=== PATIENT | female | born 1995 | race Caucasian/White ===

== ENCOUNTER 2016-08-13 12:10 | Emergency (ER) | payer MEDICAID ==
[~2016-08-13] VITALS: Ht 162.6 cm; Wt 65.0 kg
[~2016-08-13 12:10] MED LIST: BACTDS PO; CEPH-443 PO; HYDR-3011 PO; KENC1 TOP
[2016-08-13] MEDS ORDERED: SOD CHLORIDE 0.9% 500 ML IV STA (13:33)
[2016-08-13] MEDS ORDERED: ONDANSETRON 4 MG INJ IV STA (13:33)
[2016-08-13] MEDS ORDERED: KETOROLAC 30 MG INJ IV STA (13:33)
--- NOTE | 2016-08-13 13:33 | ERD ---
ER Documentation Chief Complaint Date/Time DATE: 08/13/16 TIME: 13:20 Chief Complaint HPI 20 y/o female presents to ED for right flank pain that radiates to right upper and right lower abdominal area. Pain started last night at around 7 PM when she woke up from her bed. Pain was described as sharp with a rate of 7/10 about 2 hours ago and 9/10 at this time. Vomited twice prior to arrival. Has difficulty walking. Denies headache, loss of consciousness, dizziness, blurry vision, changes in vision, photophobia, facial pain, ear pain, throat pain, difficulty swallowing, neck pain, shoulder pain, chest pain, cough, hemoptysis, loss of appetite, hematochezia, diarrhea, constipation, vaginal bleeding, vaginal discharge, urinary symptoms, hematuria, bladder and bowel incontinences, extremity tenderness, numbness or tingling sensation, trauma/falls, recent travel, recent exposure to illness, recent antibiotic use in the last 3 months, fever, chills. Allergy: NKA PMH: Denies. Family medical history: Denies. AO LMP: "A month ago." Medications: Denies. Surgery: Denies. 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 Denies smoking, use of alcohol, use of illegal drugs. ROS All systems reviewed and are negative except as per history of present illness. Medications Home Meds Active Scripts Acetaminophen* (Tylophen*) 500 Mg Capsule, 1 CAP PO Q6H Y for PAIN AND OR ELEVATED TEMP, #20 CAP Prov:PASILAWALTER PEREZAR F 08/13/16 Ondansetron Hcl* (Zofran*) 4 Mg Tablet, 4 MG PO Q8H Y for NAUSEA AND/OR VOMITING , #30 TAB Prov:PASILABANWALTERAR F 08/13/16 Cephalexin* (Keflex*) 500 Mg Capsule, 500 MG PO QID for 10 Days, CAP Prov:PASILABAN,KLAR F 08/13/16 Hydroxyzine Hcl* (Hydroxyzine Hcl*) 25 Mg Tablet, 25 MG PO Q8H Y for ITCHING, # 30 TAB Prov:LINK URIARTE NP 10/08/15 Triamcinolone Acetonide* (Kenalog*) 0.1%-15GM Cr, 1 APPLIC TOP BID, #1 TUB Prov:LINK URIARTE JEAN Anaya SAUSAGE STRINGER 10/08/15 Cephalexin* (Keflex*) 500 Mg Capsule, 500 MG PO QID for 10 Days, CAP Prov:LINK URIARTE PENA MadelinKaycee [employer]USAGE STRINGER 10/08/15 Sulfamethoxazole-Trimethoprim* (Bactrim* DS) 800-160 Mg Tab, 1 TAB PO BID for 10 Days, TAB Prov:LINK URIARTEKaycee SAUSAGE STRINGER 10/08/15 Allergies Allergies: Coded Allergies: No Known Drug Allergies (Verified Allergy, Mild, 08/04/14) PMhx/Soc History of Surgery: No Anesthesia Reaction: No Hx Neurological Disorder: No Hx Respiratory Disorders: No Hx Cardiac Disorders: No Hx Psychiatric Problems: No Hx Miscellaneous Medical Probl: No Hx Alcohol Use: No Hx Substance Use: No Hx Tobacco Use: No Physical Exam Vitals Vital Signs Date Time Temp Pulse Resp B/P Pulse Ox O2 Delivery O2 Flow Rate FiO2 08/13/16 15:21 98.4 78 18 113/66 98 Physical Exam CONSTITUTIONAL: Well-appearing; well-nourished; in no apparent distress. HEAD: Normocephalic; atraumatic. EYES: Conjunctiva clear, sclera non-icteric, EOM intact. PERRL Ears: Hearing intact. EACs clear, TMs non-bulging, non-inflamed, translucent & mobile, ossicles normal appearance, No obstructions, no erythema, no discharges Nose: No obstructions. No polyps. No external lesions. Mucosa non-inflamed. No external lesions, septum and turbinates normal. No rhinorrhea. No discharges. Frontal sinus is non-tender to palpation. Maxillary sinus is non-tender to palpation. MOUTH: Moist mucous membranes, no lesion, no obstructions, no vesicles, no thrush, patent airway Throat: Uvula in midline. Right tonsil is +1 with no erythema, no exudate. Left tonsil is +1 with no erythema, no exudate. Tolerating secretions well. Good gag reflex. Patent airway. Neck: Supple, without lesions, bruits, or adenopathy. No mass. Thyroid non- enlarged and non-tender to palpation. CHEST: Symmetrical chest. Respirations even and not labored. No retractions noted. CARDIOVASCULAR: Normal S1, S2. RRR. No murmurs, gallops. RESPIRATORY: Normal chest excursion with respiration; breath sounds clear and equal bilaterally; no wheezes, rhonchi, or rales. Breathing even and unlabored. Speaking in clear, full, and complete sentences w/ ease. ABDOMEN: Normal bowel sounds normal. Tenderness to right upper and right lower abdomen on light and deep palpation with mild guarding. Soft, round, non- distended, no rebound, no organomegaly, no masses, no pulsating abdominal mass. No hernia. No peritoneal signs. : Has right CVA tenderness. BACK: Symmetrical shoulder. Spine is midline without deformity, tenderness. No evidence of trauma or deformity. PELVIS: Stable pelvis. No evidence of trauma or deformity. MUSCULOSKELETAL: Normal gait and station. No misalignment, asymmetry, crepitation, defects, tenderness, masses, effusions, decreased range of motion, instability, atrophy or abnormal strength or tone in the head, neck, spine, ribs , pelvis or extremities. Negative straight leg test bilaterally. No calf tenderness. NEUROVASCULAR: Distal pulses are present. Pedal pulse are present, equal, and normal. Capillary refills are < 2 seconds. NEUROLOGIC: Alert and oriented x4. Speaks full and clear sentences. Cranial Nerves II-XII normal. Sensation to pain, touch, and proprioception normal. Grossly unremarkable. No neurologic deficits. Romberg test is negative. PSYCHOLOGICAL: The patients mood and manner are appropriate. No hallucinations , delusions. Not SI. Not HI. Has the capacity to decide for self SKIN: Normal for age and ethnicity; warm; dry; good turgor; no apparent lesions or exudates. No rashes, hives, discoloration. Intact. Result Diagram: 08/13/16 1400 08/13/16 1400 Results 24 hrs Laboratory Tests Test 08/13/16 14:00 08/13/16 15:00 Alanine Aminotransferase (ALT/SGPT) 29IU/L Albumin 4.5g/dl Albumin/Globulin Ratio 1.28 Alkaline Phosphatase 80IU/L Amylase Level 80U/L Anion Gap 20 Aspartate Amino Transf (AST/SGOT) 23IU/L Basophils # 0.010^3/ul Basophils % 0.3% Blood Urea Nitrogen 7mg/dl Calcium Level 9.4mg/dl Carbon Dioxide Level 23mmol/L Chloride Level 102mmol/L Creatinine 0.62mg/dl Direct Bilirubin 0.00mg/dl Eosinophils # 0.010^3/ul Eosinophils % 0.4% Globulin 3.50g/dl Glucose Level 88mg/dl Hematocrit 39.6% Hemoglobin 13.5g/dl Indirect Bilirubin 0.4mg/dl Lipase 49U/L Lymphocytes # 2.510^3/ul Lymphocytes % 23.4% Mean Corpuscular Hemoglobin 30.4pg Mean Corpuscular Hemoglobin Concent 34.1g/dl Mean Corpuscular Volume 89.2fl Mean Platelet Volume 12.0fl Monocytes # 1.010^3/ul Monocytes % 9.0% Neutrophils # 7.210^3/ul Neutrophils % 66.7% Nucleated Red Blood Cells # 0.010^3/ul Nucleated Red Blood Cells % 0.0/100WBC Platelet Count 07015^3/UL Potassium Level 3.7mmol/L Red Blood Count 4.4410^6/ul Red Cell Distribution Width 12.7% Serum HCG, Qualitative POSITIVE Sodium Level 141mmol/L Total Bilirubin 0.4mg/dl Total Protein 8.0g/dl Urine Bacteria MODERATE Urine Bilirubin NEGATIVE Urine Clarity CLOUDY Urine Color LT. YELLOW Urine Glucose NEGATIVE% Urine Hemoglobin 3+ Urine Ketones 3+ Urine Leukocyte Esterase 2+ Urine Microscopic RBC 10-25/HPF Urine Microscopic WBC >200/HPF Urine Nitrite NEGATIVE Urine Specific [place] 1.015 Urine Squamous Epithelial Cells MODERATE Urine Total Protein TRACE Urine Urobilinogen 0.2 E.U./dL Urine pH 7.0 White Blood Count 10.810^3/ul Beta HCG, Quantitative 367.0mIU/ml Current Medications Medications (Trade) Dose Ordered Sig/Tanmay Route PRN Reason Start Time Stop Time Status Last Admin Dose Admin Sodium Chloride (NS) 500 ml @ 500 mls/hr Q1H STAT IV 08/13/16 13:33 08/13/16 14:32 DC 08/13/16 14:33 Ondansetron HCl (Zofran Inj) 4 mg ONCE STAT IV 08/13/16 13:33 08/13/16 13:36 DC 08/13/16 14:32 Ketorolac Tromethamine (Toradol) 30 mg ONCE STAT IV 08/13/16 13:33 08/13/16 15:35 DC Ceftriaxone Sodium (Rocephin) 1 gm ONCE ONCE IM 08/13/16 16:30 08/13/16 16:31 DC 08/13/16 16:29 Procedures/MDM Examination: Please see physical examination. Disease process, medical treatment was explained to the patient. She verbalized understanding and agreed with the diagnostic tests, medical treatment, and follow-up care. Radiology: Pelvic ultrasound. Impression: No intrauterine gestation visualized. 2.2 cm hemorrhagic cyst in the right ovary. Small amount of free fluid in the pelvis. Differential diagnosis includes early , missed or ectopic . Follow-up ultrasound and hCG levels is recommended. Case and medical management was discussed with supervising physician, Dr. Crispin Reilly who agreed with my present treatment and follow-up care. Blood works: Reviewed. Beta hCG quantitative is 367.0 ml/ml Type and Rh: A negative. POC urine : Positive. Urinalysis: Urine specific gravity is 1.015; urine ketones is 3+; urine nitrate is negative; urine bilirubin is negative; urine urobilinogen is 0.2; urine leukocyte esterase 2+; urine microscopic RBCs 10-25; urine microscopic WBC is greater than 200 urine squamous epithelial cells is moderate; urine bacteria is moderate; urine hemoglobin is 3+; urine glucose is negative urine total protein is trace. Treatment: IV insertion. Zofran 4 mg IV. Normal saline 500 cc bolus. Rocephin 1 g IV. Tylenol by mouth. Re-evaluation: Denies back pain, flank pain, right upper and right lower abdominal pain, pelvic pain, vaginal bleeding. No nausea and vomiting. Consultation: None. Differential diagnosis: Pyelonephritis versus appendicitis versus cholecystitis versus ovarian cyst versus ovarian torsion versus sciatica versus ectopic Case and medical management were discussed with supervising physician, Dr. Crispin Reilly who agreed with my present treatment and aftercare. Medical decision makin20 y/o female presents to ED for right flank pain that radiates to right upper and right lower abdominal area. Pain started last night at around 7 PM when she woke up from her bed. Pain was described as sharp with a rate of 7/10 about 2 hours ago and 9/10 at this time. Vomited twice prior to arrival. Has difficulty walking. Patient's complaint, patient's history about the complaint, my physical findings, diagnostic test results are consistent with my final diagnosis of pyelonephritis. Incidental finding . Instructed to follow-up in the next 24-48 hours for re- evaluation and or repeat ultrasound and beta hCG quantitative. Medications prescribed are the following: Tylenol supportive treatment for pain and fever. Zofran for nausea and vomiting. Keflex 500 mg 4 times daily 10 days. Patient and family member are made aware of the side effects and adverse reactions of the medications prescribed. Instructed on when to seek emergent and medical attention in case allergic/anaphylactic reactions or severe side effects and or adverse reactions to medications. Patient and family member verbalized understanding. Patient instructed Instructed to follow-up with his PCP in 24-48 hours. Follow-up ultrasound and blood works with OB in the next 24-48 hours. Instructed to Call 911 for chest pain, shortness of breath. Advised to come back here in ED as soon as possible for severity of symptoms which includes but not limited to: any new symptoms; shortness of breath/difficulty of breathing; cardiovascular changes; severe gastrointestinal symptoms; signs and symptoms of bleeding and or infection; signs of compartment syndrome/neurovascular changes; neurological changes/deficits. Patient and family member verbalized understanding. Upon discharge, patient is alert and oriented x 4, speaks full and clear sentences, denies pain, has no neurological deficits, has no neurovascular deficits, difficulty of breathing. Breathing even and unlabored. Lung sounds are clear to auscultation. Not in distress. Appears comfortable. No active bleeding. Denies vaginal bleeding. Ambulatory with steady gait. Appears satisfied with care provided here in ED. Departure Diagnosis: Primary Impression: Pyelonephritis during Additional Impression: Weeks of gestation: less than 8 weeks Qualified Code: Z3A.01 - Less than 8 weeks gestation of Condition: Stable Additional Instructions: Instructed to follow-up with his PCP in 24-48 hours. Follow-up ultrasound and blood works with OB in the next 24-48 hours. Instructed to repeat ultrasound and blood works in 24-48 hours. Instructed to Call 911 for chest pain, shortness of breath. Advised to come back here in ED as soon as possible for severity of symptoms which includes but not limited to: any new symptoms; shortness of breath/difficulty of breathing; cardiovascular changes; severe gastrointestinal symptoms; signs and symptoms of bleeding and or infection; signs of compartment syndrome/neurovascular changes; neurological changes/deficits. Patient and family member verbalized understanding. ZENON BENJAMIN Aug 13, 2016 13:33
[2016-08-13 14:28] LABS: ADD SCAN DIFF NO
[2016-08-13 14:33] LABS: BASOPHILS % 0.3 % (0.0-2.0); EOSINOPHILS % 0.4 % (0.0-7.0); HEMATOCRIT 39.6 % (37.0-47.0); HEMOGLOBIN 13.5 g/dl (12.0-16.0); LYMPHOCYTES # 2.5 10^3/ul (0.8-2.9); LYMPHOCYTES % 23.4 % (18.0-55.0); MEAN CORPUSCULAR HEMOGLOBIN 30.4 pg (29.0-33.0); MEAN CORPUSCULAR HGB CONC 34.1 g/dl (32.0-37.0); MEAN CORPUSCULAR VOLUME 89.2 fl (72.0-104.0); NEUTROPHIL # 7.2 10^3/ul (1.6-7.5); NEUTROPHILS % 66.7 % (30.0-74.0); PLATELET COUNT 236 10^3/UL (140-415); RED BLOOD COUNT 4.44 10^6/ul (4.20-5.40); RED CELL DISTRIBUTION WIDTH 12.7 % (11.5-14.5); WHITE BLOOD COUNT 10.8 10^3/ul (4.8-10.8)
[2016-08-13 14:53] LABS: ALBUMIN 4.5 g/dl (3.3-4.9)
[2016-08-13 14:54] LABS: POTASSIUM 3.7 mmol/L (3.5-5.1)
[2016-08-13 14:56] LABS: ALBUMIN/GLOBULIN RATIO 1.28; BILIRUBIN,INDIRECT 0.4 mg/dl (0-1.1); BILIRUBIN,TOTAL 0.4 mg/dl (0.2-1.3); CREATININE 0.62 mg/dl (0.44-1.00)
[2016-08-13 14:57] LABS: CALCIUM 9.4 mg/dl (8.4-10.2)
[2016-08-13 15:18] LABS: ADD UMIC YES; URINE BILIRUBIN (Dip) NEGATIVE (NEGATIVE); URINE BLOOD (Dip) 3+ (NEGATIVE); URINE COLOR LT. YELLOW (YELLOW); URINE GLUCOSE (Dip) NEGATIVE (NEGATIVE); URINE KETONES (Dip) 3+ (NEGATIVE); URINE LEUKOCYTE ESTERASE (Dip) 2+ (NEGATIVE); URINE NITRITE (Dip) NEGATIVE (NEGATIVE); URINE TOTAL PROTEIN (Dip) TRACE (NEGATIVE); URINE UROBILINOGEN (Dip) 0.2 E.U./dL (0.1-1.0)
[2016-08-13 15:21] VITALS: Ht 162.6 cm; Wt 65.0 kg
--- NOTE | 2016-08-13 15:21 | RADRPT ---
PROCEDURE: US Pelvis. CLINICAL INDICATION: Flank pain TECHNIQUE: Multiple sonographic images of the pelvis were obtained utilizing a transabdominal and endovaginal technique. The images were reviewed on a PACS workstation. COMPARISON: None. FINDINGS: The uterus is normal in size and demonstrates a normal appearance of the myometrium. The endometria l stripe is homogeneous in appearance and has the thickness of 11 mm. No intrauterine gestation is noted. The ovaries are normal in size and echogenicity. Normal Doppler flow is identified in both ovaries. The right ovary measures 4.7 x 2.8 x 2.9 cm. There is a 2.2 cm hemorrhagic cyst in the right ovary. The left ovary measures 2.6 x 1.9 x 2.2 cm. There is a small amount of free fluid in the cul-de-sac. RPTAT: AA IMPRESSION: No intrauterine gestation visualized. 2.2 cm hemorrhagic cyst in the right ovary. Small amount of free fluid in the pelvis. Differential diagnosis includes early , missed or ectopic . Follow-up ultrasound and HCG levels is recommended. .Aleksey Busby MD, MD Date Time Electronically viewed and signed by .Aleksey Busby MD, on 08/13/2016 15:21 .S/
[2016-08-13 15:32] LABS: BACTERIA,URINE MODERATE; SQUAMOUS EPITHELIAL CELL,UR MODERATE
[2016-08-13] MEDS ORDERED: CEFTRIAXONE 1 GM INJ IM ONE (16:30)
[2016-08-13] MEDS ORDERED: CEPH-443 PO (16:48)
[2016-08-13] MEDS ORDERED: ONDA4TAB8 PO (16:49)
[2016-08-13] MEDS ORDERED: ACET500C5 PO (16:49)
[2016-08-13] MEDS ORDERED: ACETAMINOPHEN 500 MG TAB PO STA (16:50)
[2016-08-13 17:07] VITALS: BP 109/65; PULSE 73; RESP 18; TEMP 98.6
== END 2016-08-13 17:09 | disposition home or self-care (01) ==
LOC: FTE 12:10
DX: N12 Tubulo-interstitial nephritis, not specified as acute or chronic (principal); R11.10 Vomiting, unspecified; Z33.1 Pregnant state, incidental
CPT/HCPCS: 36415; 76801; 76817; 80053; 81001; 82150; 83690; 84702; 84703; 85025; 86900; 86901; 96372; 96374; J0696; J2405; J7040; Z7502; Z7610; 81003

== ENCOUNTER 2016-09-08 23:17 | Emergency (ER) | payer SELFPAY ==
[~2016-09-08] VITALS: Wt 61.4 kg
[~2016-09-08 23:17] MED LIST changes: +ACET500C5 PO; +ONDA4TAB8 PO
[2016-09-09 01:18] LABS: ADD SCAN DIFF NO
[2016-09-09 01:24] LABS: BASOPHILS % 0.4 % (0.0-2.0); EOSINOPHILS # 0.1 10^3/ul (0.0-0.5); EOSINOPHILS % 0.6 % (0.0-7.0); HEMATOCRIT 38.3 % (37.0-47.0); HEMOGLOBIN 13.1 g/dl (12.0-16.0); LYMPHOCYTES # 3.7 10^3/ul (0.8-2.9); LYMPHOCYTES % 34.5 % (18.0-55.0); MEAN CORPUSCULAR HEMOGLOBIN 30.8 pg (29.0-33.0); MEAN CORPUSCULAR HGB CONC 34.2 g/dl (32.0-37.0); MEAN CORPUSCULAR VOLUME 89.9 fl (72.0-104.0); MEAN PLATELET VOLUME 11.3 fl (7.4-10.4); MONOCYTE # 0.8 10^3/ul (0.3-0.9); MONOCYTES % 7.8 % (0.0-13.0); NEUTROPHILS % 56.4 % (30.0-74.0); PLATELET COUNT 235 10^3/UL (140-415); RED BLOOD COUNT 4.26 10^6/ul (4.20-5.40); RED CELL DISTRIBUTION WIDTH 12.5 % (11.5-14.5); WHITE BLOOD COUNT 10.6 10^3/ul (4.8-10.8)
[2016-09-09 01:34] LABS: ADD UMIC YES; URINE BLOOD (Dip) NEGATIVE (NEGATIVE); URINE COLOR YELLOW (YELLOW); URINE GLUCOSE (Dip) NEGATIVE (NEGATIVE); URINE KETONES (Dip) 15 (NEGATIVE); URINE LEUKOCYTE ESTERASE (Dip) NEGATIVE (NEGATIVE); URINE NITRITE (Dip) NEGATIVE (NEGATIVE); URINE TOTAL PROTEIN (Dip) TRACE (NEGATIVE); URINE UROBILINOGEN (Dip) 0.2 E.U./dL (0.1-1.0)
[2016-09-09 01:42] LABS: URINE BILIRUBIN (Dip) NEGATIVE (NEGATIVE)
--- NOTE | 2016-09-09 01:45 | ERD ---
ER Documentation Chief Complaint Date/Time DATE: 09/09/16 TIME: 01:35 Chief Complaint vag bleed, 7 wks preg HPI 20-year-old female presents here in emergency department for complaints of vaginal bleeding started tonight. Patient is 1 para 0 0. Patient complaining pelvic pain and cramping pain, 4/10 scale, vaginal bleeding.Patient is advised to take medications as prescribed. Patient is advised to rest, increase fluid intake and do good perineal hygiene. Patient is advised that if symptoms are worse, severe abdominal pain, uncontrolled vomiting , high fever, severe flank pain, worst signs and symptoms, to return to the emergency department immediately. Otherwise, patient can follow up with primary care doctor in 5-7 days. ROS All systems reviewed and are negative except as per history of present illness. Medications Home Meds Active Scripts Acetaminophen* (Tylophen*) 500 Mg Capsule, 1 CAP PO Q6H Y for PAIN AND OR ELEVATED TEMP, #20 CAP Prov:WALTER BENJAMINAR F 08/13/16 Ondansetron Hcl* (Zofran*) 4 Mg Tablet, 4 MG PO Q8H Y for NAUSEA AND/OR VOMITING , #30 TAB Prov:WALTER BENJAMINAR F 08/13/16 Cephalexin* (Keflex*) 500 Mg Capsule, 500 MG PO QID for 10 Days, CAP Prov:PASILABANWALTERAR F 08/13/16 Hydroxyzine Hcl* (Hydroxyzine Hcl*) 25 Mg Tablet, 25 MG PO Q8H Y for ITCHING, # 30 TAB Prov:LINK URIARTE NP 10/08/15 Triamcinolone Acetonide* (Kenalog*) 0.1%-15GM Cr, 1 APPLIC TOP BID, #1 TUB Prov:LINK URIARTE NP 10/08/15 Cephalexin* (Keflex*) 500 Mg Capsule, 500 MG PO QID for 10 Days, CAP Prov:LINK URIARTE NP 10/08/15 Sulfamethoxazole-Trimethoprim* (Bactrim* DS) 800-160 Mg Tab, 1 TAB PO BID for 10 Days, TAB Prov:LINK URIARTE NP 10/08/15 Allergies Allergies: Coded Allergies: No Known Drug Allergies (Verified Allergy, Mild, 08/04/14) PMhx/Soc Medical and Surgical Hx: pt denies Medical Hx, pt denies Surgical Hx History of Surgery: No Anesthesia Reaction: No Hx Neurological Disorder: No Hx Respiratory Disorders: No Hx Cardiac Disorders: No Hx Psychiatric Problems: No Hx Miscellaneous Medical Probl: No Hx Alcohol Use: No Hx Substance Use: No Hx Tobacco Use: No Smoking Status: Never smoker FmHx Family History: No coronary disease, No diabetes, No other Physical Exam Vitals Vital Signs Date Time Temp Pulse Resp B/P Pulse Ox O2 Delivery O2 Flow Rate FiO2 09/08/16 23:29 97.7 81 20 114/59 100 Physical Exam GENERAL: The patient is well developed and appropriate for usual state of health, in no apparent distress. CHEST: Clear to auscultation bilaterally. There are no rales, wheezes or rhonchi. HEART: Regular rate and rhythm. No murmurs, clicks, rubs or gallops. No S3 or S4. ABDOMEN: Soft, nontender and nondistended. Good bowel sounds. No rebound or guarding. No gross peritonitis. No gross organomegaly or masses. No Fisher sign or McBurney point tenderness. BACK: No midline or flank tenderness. EXTREMITIES: Equal pulses bilaterally. There is no peripheral clubbing, cyanosis or edema. No focal swelling or erythema. Full range of motion. Grossly neurovascularly intact. NEURO: Alert and oriented. Cranial nerves 2-12 intact. Motor strength in all 4 extremities with 5/5 strength. Sensation grossly intact. Normal speech and gait. SKIN: There is no apparent rash or petechia. The skin is warm and dry. HEMATOLOGIC AND LYMPHATIC: There is no evidence of excessive bruising or lymphedema. No gross cervical, axillary, or inguinal lymphadenopathy. VAGINAL: Small amount of blood in the vaginal vault, no cervical motion tenderness, no adnexal tenderness. Cervical os is closed. Result Diagram: 09/09/16 0110 Results 24 hrs Laboratory Tests Test 09/09/16 01:10 09/09/16 01:16 Basophils # 0.010^3/ul Basophils % 0.4% Beta HCG, Quantitative 922602.0mIU/ml Eosinophils # 0.110^3/ul Eosinophils % 0.6% Hematocrit 38.3% Hemoglobin 13.1g/dl Lymphocytes # 3.710^3/ul Lymphocytes % 34.5% Mean Corpuscular Hemoglobin 30.8pg Mean Corpuscular Hemoglobin Concent 34.2g/dl Mean Corpuscular Volume 89.9fl Mean Platelet Volume 11.3fl Monocytes # 0.810^3/ul Monocytes % 7.8% Neutrophils # 6.010^3/ul Neutrophils % 56.4% Nucleated Red Blood Cells # 0.010^3/ul Nucleated Red Blood Cells % 0.0/100WBC Platelet Count 31411^3/UL Red Blood Count 4.2610^6/ul Red Cell Distribution Width 12.5% White Blood Count 10.610^3/ul Urine Bacteria MODERATE Urine Bilirubin NEGATIVE Urine Clarity SLIGHTLY CLOUDY Urine Color YELLOW Urine Glucose NEGATIVE% Urine Hemoglobin NEGATIVE Urine Ketones 15 Urine Leukocyte Esterase NEGATIVE Urine Microscopic RBC 0-2/HPF Urine Microscopic WBC 0-2/HPF Urine Mucus FEW Urine Nitrite NEGATIVE Urine Specific [place] >=1.030 Urine Squamous Epithelial Cells MANY Urine Total Protein TRACE Urine Urobilinogen 0.2 E.U./dL Urine pH 6.0 PROCEDURE: US OB. CLINICAL INDICATION: , vaginal bleeding. TECHNIQUE: Multiple sonographic images of the pelvis were obtained. Transabdominal views of the pelvis are available for review. The images were reviewed on a PACS workstation. COMPARISON: None. FINDINGS: There is a single intrauterine . The mean gestational sac diameter measures 2.38 cm, corresponding to a 4-nrje-6-day . The crown-rump length equals 1.47 cm which corresponds to a 9-vftd-7-day gestational age by ultrasound criteria. cardiac activity measures 161 bpm. A small subchorionic hematoma is identified. The ovaries are not visualized. The adnexa are unremarkable. There is no free pelvic fluid. IMPRESSION: 1. Single viable intrauterine gestation of approximately 7 weeks 4 days. 2. The estimated date of delivery is 04/24/2017. 3. Small subchorionic hematoma. Continued follow-up is recommended. RPTAT: HTAR .Dennys Rush MD, Date Time Electronically viewed and signed by .Dennys Rush MD, on 09/09/2016 02:07 .R/ CC: LINK URIARTE NP Patient is A-, Rogham was given here in emergency department, 50 g. Tolerated Rhogam well. No reactions. Procedures/MDM Medical Decision Making: Patients vaginal bleeding is most likely consistent of possible threatened . Patient does not show any evidence of hypovolemic shock. Patients hemoglobin and hematocrit is stable. There is low suspicion for ectopic . GEETHA results show a viable 7 week with subchorionic hemorrhage BetaHCG Quantitative is appropriate for The patient is Rh-, was given RhoGAM at this time. There is no signs of symptoms of dehydration. There is low suspicion for sepsis. Patient appears well and is hemodynamically stable. Disposition: Home. Condition: Stable Instructions: Patient is advised to do bed rest, avoid heavy lifting, and avoid having sex until cleared by OB doctor. Patient is advised to follow up with OB doctor or here at the ER in 48 hours for reevaluation of symptoms, repeat beta HCG quantitative and ultrasound. Patient is advised that is symptoms are worst, severe bleeding, dizziness, severe abdominal pain, fever, worst signs and symptoms to return to the emergency department immediately. Departure Diagnosis: Primary Impression: Threatened Additional Impressions: Subchorionic hemorrhage Fetus number: single or unspecified fetus Trimester: first trimester Qualified Code: O41.8X10 - Subchorionic hemorrhage, first trimester, not applicable or unspecified fetus Intrauterine Condition: Stable Patient Instructions: Possible Miscarriage (Threatened ), Rho(D) Immune Globulin (Human) Solution for injection Additional Instructions: Patient is advised to do bed rest, avoid heavy lifting, and avoid having sex until cleared by OB doctor. Patient is advised to follow up with OB doctor or here at the ER in 48 hours for reevaluation of symptoms, repeat beta HCG quantitative and ultrasound. Patient is advised that is symptoms are worst, severe bleeding, dizziness, severe abdominal pain, fever, worst signs and symptoms to return to the emergency department immediately. LINK URIARTE NP Sep 09, 2016 01:45
[2016-09-09 01:53] LABS: URINE RBCS 0-2 /HPF (0)
[2016-09-09 01:54] LABS: BACTERIA,URINE MODERATE; MUCUS,URINE FEW; SQUAMOUS EPITHELIAL CELL,UR MANY
--- NOTE | 2016-09-09 02:07 | RADRPT ---
PROCEDURE: US OB. CLINICAL INDICATION: , vaginal bleeding. TECHNIQUE: Multiple sonographic images of the pelvis were obtained. Transabdominal views of the p elizabeth are available for review. The images were reviewed on a PACS workstation. COMPARISON: None. FINDINGS: There is a single intrauterine . The mean gestational sac diameter measures 2.38 cm, corres ponding to a 6-otwq-0-day . The crown-rump length equals 1.47 cm which corresponds to a 7- week-6-day gestational age by ultrasound criteria. cardiac activity measures 161 bpm. A smal l subchorionic hematoma is identified. The ovaries are not visualized. The adnexa are unremarkable. There is no free pelvic fluid. IMPRESSION: 1. Single viable intrauterine gestation of approximately 7 weeks 4 days. 2. The estimated date of delivery is 04/24/2017. 3. Small subchorionic hematoma. Continued follow-up is recommended. RPTAT: HTAR .Dennys Rush MD, MD Date Time Electronically viewed and signed by .Dennys Rush MD, on 09/09/2016 02:07 .R/
[2016-09-09 03:11] VITALS: BP 121/84; PULSE 76; RESP 18; TEMP 97.8
== END 2016-09-09 03:19 | disposition home or self-care (01) ==
LOC: FTE 23:17
DX: O20.0 Threatened abortion (principal); O41.8X10 Other specified disorders of amniotic fluid and membranes, first trimester, not applicable or unspecified; Z3A.01 Less than 8 weeks gestation of pregnancy
CPT/HCPCS: 76801; 81001; 84702; 85025; 86900; 86901; 99284; J2790; 81003

== ENCOUNTER 2016-09-11 08:53 | Emergency (ER) | payer MEDICAID ==
[~2016-09-11] VITALS: Wt 61.0 kg
--- NOTE | 2016-09-11 09:31 | ERD ---
ER Documentation Chief Complaint Date/Time DATE: 09/11/16 TIME: 09:31 Chief Complaint PELVIC PAIN 8 WEEKS PREG DENIES VB HPI This is a 20-year-old female who presents to the emergency department today for a recheck of vaginal bleeding that she had 2 days ago. Patient states that she does have some nausea but no vomiting. Denies any vaginal bleeding currently. States she does have some crampy abdominal pain she has not taken any medication for the pain or vomiting. States she has an appointment with her OB/ [facility] on Wednesday denies any fevers or chills. ROS All systems reviewed and are negative except as per history of present illness. Medications Home Meds Active Scripts Ondansetron Hcl* (Zofran*) 4 Mg Tablet, 4 MG PO Q6H for NAUSEA AND/OR VOMITING, #30 TAB Prov:SABA HALLMAN PA-C 09/11/16 Acetaminophen* (Tylophen*) 500 Mg Capsule, 1 CAP PO Q6H Y for PAIN AND OR ELEVATED TEMP, #30 CAP Prov:SABA HALLMAN PA-C 09/11/16 Acetaminophen* (Tylophen*) 500 Mg Capsule, 1 CAP PO Q6H Y for PAIN AND OR ELEVATED TEMP, #20 CAP Prov:ZENON BENJAMIN F 08/13/16 Ondansetron Hcl* (Zofran*) 4 Mg Tablet, 4 MG PO Q8H Y for NAUSEA AND/OR VOMITING , #30 TAB Prov:WALTER BENJAMINAR F 08/13/16 Cephalexin* (Keflex*) 500 Mg Capsule, 500 MG PO QID for 10 Days, CAP Prov:PASILAWALTER PEREZAR F 08/13/16 Hydroxyzine Hcl* (Hydroxyzine Hcl*) 25 Mg Tablet, 25 MG PO Q8H Y for ITCHING, # 30 TAB Prov:LINK URIARTE NP 10/08/15 Triamcinolone Acetonide* (Kenalog*) 0.1%-15GM Cr, 1 APPLIC TOP BID, #1 TUB Prov:LINK URIARTE NP 10/08/15 Cephalexin* (Keflex*) 500 Mg Capsule, 500 MG PO QID for 10 Days, CAP Prov:ILNK URIARTE NP 10/08/15 Sulfamethoxazole-Trimethoprim* (Bactrim* DS) 800-160 Mg Tab, 1 TAB PO BID for 10 Days, TAB Prov:LINK URIARTE PENA Héctor SANCHEZ 10/08/15 Allergies Allergies: Coded Allergies: No Known Drug Allergies (Verified Allergy, Mild, 09/11/16) PMhx/Soc Medical and Surgical Hx: pt denies Medical Hx, pt denies Surgical Hx History of Surgery: No Anesthesia Reaction: No Hx Neurological Disorder: No Hx Respiratory Disorders: No Hx Cardiac Disorders: No Hx Psychiatric Problems: No Hx Miscellaneous Medical Probl: No Hx Alcohol Use: No Hx Substance Use: No Hx Tobacco Use: No Smoking Status: Never smoker Physical Exam Vitals Vital Signs Date Time Temp Pulse Resp B/P Pulse Ox O2 Delivery O2 Flow Rate FiO2 09/11/16 08:58 98.1 114 18 118/68 99 Physical Exam Const: No acute distress Head: Atraumatic Eyes: Normal Conjunctiva ENT: Normal External Ears, Nose and Mouth. Neck: Full range of motion..~ No meningismus. Resp: Clear to auscultation bilaterally Cardio: Regular rate and rhythm, no murmurs Abd: Soft, mild suprapubic tenderness, non distended. Normal bowel sounds. No right lower quadrant pain. No tenderness at McBurney's. No left lower quadrant pain. Skin: No petechiae or rashes Neur: Awake and alert Psych: Normal Mood and Affect Result Diagram: 09/11/16 0930 Results 24 hrs Laboratory Tests Test 09/11/16 09:30 White Blood Count 7.310^3/ul Red Blood Count 4.0710^6/ul Hemoglobin 12.5g/dl Hematocrit 36.7% Mean Corpuscular Volume 90.2fl Mean Corpuscular Hemoglobin 30.7pg Mean Corpuscular Hemoglobin Concent 34.1g/dl Red Cell Distribution Width 12.3% Platelet Count 28367^3/UL Mean Platelet Volume 10.9fl Neutrophils % 51.0% Lymphocytes % 38.6% Monocytes % 8.7% Eosinophils % 1.0% Basophils % 0.4% Nucleated Red Blood Cells % 0.0/100WBC Neutrophils # 3.710^3/ul Lymphocytes # 2.810^3/ul Monocytes # 0.610^3/ul Eosinophils # 0.110^3/ul Basophils # 0.010^3/ul Nucleated Red Blood Cells # 0.010^3/ul Beta HCG, Quantitative 602909.0mIU/ml DIAGNOSTIC IMAGING REPORT Patient: CASSIDY ANDRE : 1995 Age: 20 Sex: F MR #: [id number] DOS: 09/11/16 0925 Ordering MD: SABA HALLMAN PA-C Location: [facility] Room/Bed: PROCEDURE: US OB. CLINICAL INDICATION: , vaginal bleeding TECHNIQUE: Transabdominal imaging of the pelvis was performed. Images are reviewed on a high-resolution PACS workstation. COMPARISON: Ultrasound, 09/09/2016 FINDINGS: Single intrauterine gestation is identified. heart rate is 179 bpm. [place]-rump length = 1.82 cm. Gestational age is 8 weeks 1 day and BETSY is 04/22/2017 by ultrasound criteria. Gestational age is 7 weeks 6 days and BETSY is 04/24/2017 by LMP. Small subchorionic hemorrhage is noted. Right ovary is unremarkable. Left ovary is not visualized. No adnexal mass or pelvic free fluid is identified. IMPRESSION: 1. Single live intrauterine with an estimated gestational age of 8 weeks 1 day by ultrasound criteria, as above. Small subchorionic hemorrhage is noted. RPTAT: HH .Vasquez Yee MD MD Date Time Electronically viewed and signed by .Vasquez Yee MD, on 09/11/2016 10: 01 .R/ CC: SABA HALLMAN PA-C Procedures/MDM This is a 20-year-old female who presents to the emergency department today for a recheck of vaginal bleeding that she had 2 days ago. Patient had some mild suprapubic pain however she had a full OB workup on her last visit. Patient was a negative and was given RhoGam. I did repeat a CBC, beta quant and ultrasound. Patient's last ultrasound showed a single viable intrauterine of approximately 7 weeks with a subchorionic hemorrhage. Laboratory work shows no elevated white blood cell count. Her hemoglobin is within normal limits. Beta quant hCG 998324.0 US shows a single live intrauterine with an estimated gestational age of 8 weeks and 1 day by ultrasound criteria as above. There is a small subchorionic hemorrhage is noted. There are no adnexal mass or pelvic free fluid. heart rate is 179 bpm Patient's beta quant 2 days ago was 054976.0 and is increasing appropriately. Her ultrasound is unchanged. Patient's symptoms of vaginal bleeding in 2 days ago may be related to these small subchorionic hemorrhage or possible early threatened . I explained this to the patient.Patient declined any nausea medication or Tylenol for pain. She will be given a prescription for Tylenol and Zofran. She was instructed to follow back up with her SPECTROSCOPIST on Wednesday as previously scheduled At this time the patient is stable for discharge and outpatient management. Patient should follow up with their PCP in the next 1-2 days. They may return to the emergency department sooner for any persistent or worsening of symptoms. Patient understood and agreed with the plan. Departure Diagnosis: Primary Impression: Pelvic pain during Condition: SABA Urias PA-C Sep 11, 2016 09:31
[2016-09-11 09:50] LABS: ADD SCAN DIFF NO
[2016-09-11 09:53] LABS: BASOPHILS % 0.4 % (0.0-2.0); EOSINOPHILS # 0.1 10^3/ul (0.0-0.5); HEMATOCRIT 36.7 % (37.0-47.0); HEMOGLOBIN 12.5 g/dl (12.0-16.0); LYMPHOCYTES # 2.8 10^3/ul (0.8-2.9); LYMPHOCYTES % 38.6 % (18.0-55.0); MEAN CORPUSCULAR HEMOGLOBIN 30.7 pg (29.0-33.0); MEAN CORPUSCULAR HGB CONC 34.1 g/dl (32.0-37.0); MEAN CORPUSCULAR VOLUME 90.2 fl (72.0-104.0); MEAN PLATELET VOLUME 10.9 fl (7.4-10.4); MONOCYTE # 0.6 10^3/ul (0.3-0.9); MONOCYTES % 8.7 % (0.0-13.0); NEUTROPHIL # 3.7 10^3/ul (1.6-7.5); PLATELET COUNT 222 10^3/UL (140-415); RED BLOOD COUNT 4.07 10^6/ul (4.20-5.40); RED CELL DISTRIBUTION WIDTH 12.3 % (11.5-14.5); WHITE BLOOD COUNT 7.3 10^3/ul (4.8-10.8)
--- NOTE | 2016-09-11 10:01 | RADRPT ---
PROCEDURE: US OB. CLINICAL INDICATION: , vaginal bleeding TECHNIQUE: Transabdominal imaging of the pelvis was performed. Images are reviewed on a high-reso [employer] PACS workstation. COMPARISON: Ultrasound, 09/09/2016 FINDINGS: Single intrauterine gestation is identified. heart rate is 179 bpm. [place]-rump length = 1.82 cm. Gestational age is 8 weeks 1 day and BETSY is 04/22/2017 by ultrasound criteria. Gestational age is 7 weeks 6 days and BETSY is 04/24/2017 by LMP. Small subchorionic hemorrhage is noted. Right ovary is unremarkable. Left ovary is not visualized. No adnexal mass or pelvic free fluid is identified. IMPRESSION: 1. Single live intrauterine with an estimated gestational age of 8 weeks 1 day by ultraso und criteria, as above. Small subchorionic hemorrhage is noted. RPTAT: HH .Vasquez Yee MD, MD Date Time Electronically viewed and signed by .Vasquez Yee MD, MD on 09/11/2016 10:01 .R/
[2016-09-11] MEDS ORDERED: ONDA4TAB8 PO (11:08)
[2016-09-11] MEDS ORDERED: ACET500C5 PO (11:08)
[2016-09-11 11:21] VITALS: BP 111/59; PULSE 70; RESP 18; TEMP 98.1
== END 2016-09-11 11:22 | disposition home or self-care (01) ==
LOC: FTE 08:53
DX: O26.891 Other specified pregnancy related conditions, first trimester (principal); R10.2 Pelvic and perineal pain; Z3A.08 8 weeks gestation of pregnancy
CPT/HCPCS: 36415; 76801; 76817; 84702; 85025; Z7502

== ENCOUNTER 2016-11-17 13:41 | Emergency (ER) | payer MEDICAID, OTHER ==
[~2016-11-17] VITALS: Ht 154.9 cm; Wt 64.0 kg
[2016-11-17 13:44] VITALS: Ht 154.9 cm; Wt 64.0 kg
[2016-11-17 14:19] LABS: ADD SCAN DIFF NO
[2016-11-17 14:20] LABS: BASOPHILS % 0.4 % (0.0-2.0); EOSINOPHILS # 0.1 10^3/ul (0.0-0.5); EOSINOPHILS % 0.9 % (0.0-7.0); HEMATOCRIT 35.7 % (37.0-47.0); HEMOGLOBIN 12.1 g/dl (12.0-16.0); LYMPHOCYTES % 25.7 % (18.0-55.0); MEAN CORPUSCULAR HEMOGLOBIN 30.8 pg (29.0-33.0); MEAN CORPUSCULAR HGB CONC 33.9 g/dl (32.0-37.0); MEAN CORPUSCULAR VOLUME 90.8 fl (72.0-104.0); MEAN PLATELET VOLUME 10.8 fl (7.4-10.4); MONOCYTE # 0.9 10^3/ul (0.3-0.9); MONOCYTES % 11.1 % (0.0-13.0); NEUTROPHIL # 4.7 10^3/ul (1.6-7.5); NEUTROPHILS % 61.6 % (30.0-74.0); PLATELET COUNT 233 10^3/UL (140-415); RED BLOOD COUNT 3.93 10^6/ul (4.20-5.40); RED CELL DISTRIBUTION WIDTH 13.3 % (11.5-14.5); WHITE BLOOD COUNT 7.7 10^3/ul (4.8-10.8)
[2016-11-17 14:36] LABS: INR 0.89; PARTIAL THROMBOPLASTIN TIME 27.5 Sec (25.0-35.0); PT RATIO 0.9
[2016-11-17 14:41] LABS: ALBUMIN 3.8 g/dl (3.3-4.9); CHLORIDE 113 mmol/L (97-110); POTASSIUM 4.2 mmol/L (3.5-5.1); SODIUM 141 mmol/L (135-144)
[2016-11-17 14:43] LABS: CREATININE 0.52 mg/dl (0.44-1.00)
[2016-11-17 14:44] LABS: ALANINE AMINOTRANSFERASE 31 IU/L (13-69); ALBUMIN/GLOBULIN RATIO 1.11; ALKALINE PHOSPHATASE 58 IU/L (42-121); ANION GAP 6 (8-16); ASPARTATE AMINO TRANSFERASE 21 IU/L (15-46); BILIRUBIN,INDIRECT 0.1 mg/dl (0-1.1); BILIRUBIN,TOTAL 0.1 mg/dl (0.2-1.3); BLOOD UREA NITROGEN 5 mg/dl (7-20); CARBON DIOXIDE 26 mmol/L (21-31); GLUCOSE 80 mg/dl (70-220); TOTAL PROTEIN 7.2 g/dl (6.1-8.1)
[2016-11-17 14:45] LABS: CALCIUM 9.2 mg/dl (8.4-10.2)
[2016-11-17 14:46] LABS: ETHANOL < 10.0 mg/dl
[2016-11-17 15:05] LABS: ACETAMINOPHEN < 10.0 ug/ml (10.0-30.0)
[2016-11-17 15:06] LABS: SALICYLATE < 1.0 mg/dl (5.0-30.0)
--- NOTE | 2016-11-17 15:16 | RADRPT ---
PROCEDURE: Obstetrical ultrasound CLINICAL INDICATION: 17 weeks confirm viability TECHNIQUE: Multiple sonographic images of the pelvis were obtained. The images were reviewed on a PACS workstation. COMPARISON: Obstetrical ultrasound from 09/11/2016 FINDINGS: The cervix is not well visualized. There is a single viable intrauterine gestation. Cardiac activity is present with 136 beats per minute. There is a vertex presentation. The placenta is posterior. There is no evidence for an abruption or placenta previa. There is a normal amount of amniotic fluid with in maximum vertical pocket of 4.8 cm. Measurements were made in order to determine age. The results are as follows (cm): BPD =4.41 HC =15.99 AC =13.35 FL =2.64 Estimated gestational age by ultrasound of approximately 18 weeks, 5 days. The estimated date of delivery by ultrasound is 04/15/2017. Estimated gestational age by LMP of approximately 17 weeks, 5 days. The estimated date of delivery by LMP is 04/22/2017. EFW = 244 grams (89th percentile) IMPRESSION: Single viable intrauterine gestation of approximately 18 weeks, 5 days . The estimated date of delivery is 04/15/2017 . Dating by ultrasound is within 1 week of dating by LMP. Normal heart rate of 136 beats per minute. Posterior placenta without evidence of an abruption or placenta previa. Estimated weight is in the 89th percentile. RPTAT: EE Physician Edinson Date Time Electronically viewed and signed by Physician Edinson on 11/17/2016 15:16 /
[2016-11-17 15:27] LABS: URINE BILIRUBIN (Dip) NEGATIVE (NEGATIVE); URINE BLOOD (Dip) NEGATIVE (NEGATIVE); URINE GLUCOSE (Dip) NEGATIVE (NEGATIVE); URINE KETONES (Dip) TRACE (NEGATIVE); URINE LEUKOCYTE ESTERASE (Dip) NEGATIVE (NEGATIVE); URINE NITRITE (Dip) NEGATIVE (NEGATIVE); URINE TOTAL PROTEIN (Dip) NEGATIVE (NEGATIVE); URINE UROBILINOGEN (Dip) 1.0 E.U./dL (0.1-1.0)
[2016-11-17 15:36] LABS: ADD UMIC NO; URINE COLOR YELLOW (YELLOW)
--- NOTE | 2016-11-17 15:44 | PSY ---
Date/Time of Note Date/Time of Note DATE: 11/17/16 TIME: 15:39 Psychiatric Subjective Eval Consent Pt consented to telemedicine: Yes Subjective Evaluation Patient location: emergency Chief Complaint: 17 weeks c/o depression with suicidal ideation History of present illness 21 yo single unemployed female s/p OD on Tylenol , 10 tablets. Pt states, she does nto want to be alive anymore, but she does not want to hurt the baby. She broke up with her BF 3 days ago and moved in with her mother who is not supportive. Pt is 17 weeks . She is tearful depressed, hopeless, helpless, overwhlemed. SHe has been feeling that way for a few weeks, but more so since the breakup. No psychosis. no HI. Past psychiatric history none Family History denies Medical history Problems Medical Problems: (1) Contact dermatitis Status: Acute (2) Depression Status: Chronic (3) Foot contusion Status: Acute (4) Intentional drug overdose Status: Acute (5) Intrauterine Status: Acute (6) Pelvic pain during Status: Acute (7) Status: Acute (8) Pyelonephritis during Status: Acute (9) Soft tissue abscess Status: Acute (10) Subchorionic hemorrhage Status: Acute (11) Threatened Status: Acute Allergies: Coded Allergies: No Known Drug Allergies (Verified Allergy, Mild, 09/11/16) Substance Abuse Substance use: No known substance abuse Social History Marital status: single Level of education: 13 years DPA/Conservatorship: No Occupation/Jail: unemployed Psychiatric Objective Eval Physical Examination: Sleep: Insomnia Appetite: Decreased Energy: Decreased Interest: Decreased Mental Status Examination: Appearance: Groomed Eye Contact: Good Psychomotor Activity: Normal Behavior: Cooperative Speech: Clear AFFECT: Depressed Mood: Depressed Though Process: Linear Thought Content: Normal Suicidal: Yes Homicidal: No On 72 hour hold: No Orientation: x4 Cognition: Alert Insight: Impared Judgement: Impared Laboratory Results Laboratory Tests Test 11/17/16 14:15 11/17/16 14:46 White Blood Count 7.710^3/ul Red Blood Count 3.9310^6/ul Hemoglobin 12.1g/dl Hematocrit 35.7% Mean Corpuscular Volume 90.8fl Mean Corpuscular Hemoglobin 30.8pg Mean Corpuscular Hemoglobin Concent 33.9g/dl Red Cell Distribution Width 13.3% Platelet Count 13341^3/UL Mean Platelet Volume 10.8fl Neutrophils % 61.6% Lymphocytes % 25.7% Monocytes % 11.1% Eosinophils % 0.9% Basophils % 0.4% Nucleated Red Blood Cells % 0.0/100WBC Neutrophils # 4.710^3/ul Lymphocytes # 2.010^3/ul Monocytes # 0.910^3/ul Eosinophils # 0.110^3/ul Basophils # 0.010^3/ul Nucleated Red Blood Cells # 0.010^3/ul Prothrombin Time 12.0Sec Prothrombin Time Ratio 0.9 INR International Normalized Ratio 0.89 Activated Partial Thromboplast Time 27.5Sec Sodium Level 141mmol/L Potassium Level 4.2mmol/L Chloride Level 113mmol/L Carbon Dioxide Level 26mmol/L Anion Gap 6 Blood Urea Nitrogen 5mg/dl Creatinine 0.52mg/dl Glucose Level 80mg/dl Calcium Level 9.2mg/dl Total Bilirubin 0.1mg/dl Direct Bilirubin 0.00mg/dl Indirect Bilirubin 0.1mg/dl Aspartate Amino Transf (AST/SGOT) 21IU/L Alanine Aminotransferase (ALT/SGPT) 31IU/L Alkaline Phosphatase 58IU/L Total Protein 7.2g/dl Albumin 3.8g/dl Globulin 3.40g/dl Albumin/Globulin Ratio 1.11 Salicylates Level < 1.0mg/dl Acetaminophen Level < 10.0ug/ml Ethyl Alcohol Level < 10.0mg/dl Urine Color YELLOW Urine Clarity SLIGHTLY CLOUDY Urine pH 6.0 Urine Specific [place] 1.025 Urine Ketones TRACE Urine Nitrite NEGATIVE Urine Bilirubin NEGATIVE Urine Urobilinogen 1.0 E.U./dL Urine Leukocyte Esterase NEGATIVE Urine Hemoglobin NEGATIVE Urine Glucose NEGATIVE% Urine Total Protein NEGATIVE Assessment and Plan Assessment/Diagnosis [place] I: MAJOR DEPRESSIVE DISORDER SINGLE EPISODE SEVERE W/O PSYCHOSIS [place] II: DEFERED [place] III: PRIMA , 17 WEEKS [place] IV: SEVERE [place] V: GAF 25 Recommendation/Plan Medication Management DEFER TO INPT Psychotherapy DEFER TO INPT Follow-up/Disposition 5105 FOR DTS; TRANSFER TO INPT PSYCH 5150 Recommendation: LISS Frey MD November 17, 2016 15:44
[2016-11-17 16:46] LABS: BARBITURATES NEGATIVE (NEGATIVE); BENZODIAZEPINES NEGATIVE (NEGATIVE); CANNABINOIDS NEGATIVE (NEGATIVE); COCAINE NEGATIVE (NEGATIVE); OPIATES NEGATIVE (NEGATIVE)
--- NOTE | 2016-11-17 18:19 | ERA ---
ER Documentation Chief Complaint Date/Time DATE: 11/17/16 TIME: 18:17 Chief Complaint 17 weeks c/o depression with suicidal ideation HPI Patient is a 21-year-old female with no medical problems who presents with a suicide attempt. The patient says "I took a lot of Tylenol" and says that she took this approximately 12 PM today. She says that she actually took 5 tablets of the 500 mg Tylenol when I pressed her to give me the specifics. She says that she is " and alone" and recently broke up with her boyfriend. She has suicidal thoughts. She has attempted suicide in the past. She is a . She is approximately 17 weeks . Upon review of old medical records this is the patient's 11th visit to the ER since 2010. She does not currently have a primary doctor. ROS All systems reviewed and are negative except as per history of present illness. Medications Home Meds Active Scripts Ondansetron Hcl* (Zofran*) 4 Mg Tablet, 4 MG PO Q6H for NAUSEA AND/OR VOMITING, #30 TAB Prov:SABA HALLMAN PA-C 09/11/16 Acetaminophen* (Tylophen*) 500 Mg Capsule, 1 CAP PO Q6H Y for PAIN AND OR ELEVATED TEMP, #30 CAP Prov:SABA HALLMAN PA-C 09/11/16 Acetaminophen* (Tylophen*) 500 Mg Capsule, 1 CAP PO Q6H Y for PAIN AND OR ELEVATED TEMP, #20 CAP Prov:CHRISILAWALTER PEREZAR F 08/13/16 Ondansetron Hcl* (Zofran*) 4 Mg Tablet, 4 MG PO Q8H Y for NAUSEA AND/OR VOMITING , #30 TAB Prov:PASILAZENON PEREZ F 08/13/16 Cephalexin* (Keflex*) 500 Mg Capsule, 500 MG PO QID for 10 Days, CAP Prov:PASILABANWALTERAR F 08/13/16 Hydroxyzine Hcl* (Hydroxyzine Hcl*) 25 Mg Tablet, 25 MG PO Q8H Y for ITCHING, # 30 TAB Prov:LINK URIARTE NP 10/08/15 Triamcinolone Acetonide* (Kenalog*) 0.1%-15GM Cr, 1 APPLIC TOP BID, #1 TUB Prov:LINK URIARTE COMMUNICATION EQUIPMENT REPAIRER 10/08/15 Cephalexin* (Keflex*) 500 Mg Capsule, 500 MG PO QID for 10 Days, CAP Prov:LINK URIARTE COMMUNICATION EQUIPMENT REPAIRER 10/08/15 Sulfamethoxazole-Trimethoprim* (Bactrim* DS) 800-160 Mg Tab, 1 TAB PO BID for 10 Days, TAB Prov:LINK URIARTE COMMUNICATION EQUIPMENT REPAIRER 10/08/15 Allergies Allergies: Coded Allergies: No Known Drug Allergies (Verified Allergy, Mild, 09/11/16) PMhx/Soc Medical and Surgical Hx: pt denies Medical Hx, pt denies Surgical Hx History of Surgery: No Anesthesia Reaction: No Hx Neurological Disorder: No Hx Respiratory Disorders: No Hx Cardiac Disorders: No Hx Psychiatric Problems: No Hx Miscellaneous Medical Probl: No Hx Alcohol Use: No Hx Substance Use: No Hx Tobacco Use: No Smoking Status: Never smoker FmHx Family History: No diabetes Physical Exam Vitals Vital Signs Date Time Temp Pulse Resp B/P Pulse Ox O2 Delivery O2 Flow Rate FiO2 11/17/16 13:44 99.0 113 20 124/69 99 Physical Exam Const: Tearful Head: Atraumatic Eyes: Normal Conjunctiva ENT: Normal External Ears, Nose and Mouth. Neck: Full range of motion..~ No meningismus. Resp: Clear to auscultation bilaterally Cardio: Regular rate and rhythm, no murmurs Abd: Soft, non tender, non distended. Normal bowel sounds Skin: No petechiae or rashes Back: No midline or flank tenderness Ext: No cyanosis, or edema Neur: Awake and alert Psych: Depressed affect with positive suicidal ideation Result Diagram: 11/17/16 1415 11/17/16 1415 Results 24 hrs Laboratory Tests Test 11/17/16 14:15 11/17/16 14:46 11/17/16 16:20 White Blood Count 7.710^3/ul Red Blood Count 3.9310^6/ul Hemoglobin 12.1g/dl Hematocrit 35.7% Mean Corpuscular Volume 90.8fl Mean Corpuscular Hemoglobin 30.8pg Mean Corpuscular Hemoglobin Concent 33.9g/dl Red Cell Distribution Width 13.3% Platelet Count 15859^3/UL Mean Platelet Volume 10.8fl Neutrophils % 61.6% Lymphocytes % 25.7% Monocytes % 11.1% Eosinophils % 0.9% Basophils % 0.4% Nucleated Red Blood Cells % 0.0/100WBC Neutrophils # 4.710^3/ul Lymphocytes # 2.010^3/ul Monocytes # 0.910^3/ul Eosinophils # 0.110^3/ul Basophils # 0.010^3/ul Nucleated Red Blood Cells # 0.010^3/ul Prothrombin Time 12.0Sec Prothrombin Time Ratio 0.9 INR International Normalized Ratio 0.89 Activated Partial Thromboplast Time 27.5Sec Sodium Level 141mmol/L Potassium Level 4.2mmol/L Chloride Level 113mmol/L Carbon Dioxide Level 26mmol/L Anion Gap 6 Blood Urea Nitrogen 5mg/dl Creatinine 0.52mg/dl Glucose Level 80mg/dl Calcium Level 9.2mg/dl Total Bilirubin 0.1mg/dl Direct Bilirubin 0.00mg/dl Indirect Bilirubin 0.1mg/dl Aspartate Amino Transf (AST/SGOT) 21IU/L Alanine Aminotransferase (ALT/SGPT) 31IU/L Alkaline Phosphatase 58IU/L Total Protein 7.2g/dl Albumin 3.8g/dl Globulin 3.40g/dl Albumin/Globulin Ratio 1.11 Salicylates Level < 1.0mg/dl Acetaminophen Level < 10.0ug/ml < 10.0ug/ml Ethyl Alcohol Level < 10.0mg/dl Urine Color YELLOW Urine Clarity SLIGHTLY CLOUDY Urine pH 6.0 Urine Specific [place] 1.025 Urine Ketones TRACE Urine Nitrite NEGATIVE Urine Bilirubin NEGATIVE Urine Urobilinogen 1.0 E.U./dL Urine Leukocyte Esterase NEGATIVE Urine Hemoglobin NEGATIVE Urine Glucose NEGATIVE% Urine Total Protein NEGATIVE Urine Opiates Screen NEGATIVE Urine Barbiturates NEGATIVE Urine Amphetamines Screen NEGATIVE Urine Benzodiazepines Screen NEGATIVE Urine Cocaine Screen NEGATIVE Urine Cannabinoids NEGATIVE Procedures/MDM Ultrasound shows abdomen with fetus at 18 weeks per radiology. Patient is a 21-year-old female who presents with a suicide attempt. Her 4 hour Tylenol level was negative and I doubt she took a serious ingestion of Tylenol. I spoke with poison control who did not recommend N-acetylcysteine. The patient is now medically clear for psychiatric care. Dr. Guerra from psychiatry has evaluated the patient and feels that she requires a 5150 hold. The patient had an ultrasound which shows a fetus of 18 weeks. The patient will need transfer to a psychiatric facility. We are attempting to find psychiatric placement at this time. food and nutrition services supervisor has been involved. Critical Care: Time: 35 minutes excluding all billable procedures. Treatments/Evaluations: Close monitoring and treatment of unstable vital signs, cardiorespiratory, and neurologic status, while maintaining tight balance of fluid, respiratory, and cardiac interventions. Departure Diagnosis: Primary Impression: Suicidal ideation Additional Impressions: Suicide attempt Overdose Qualified Code: T50.902A - Overdose, intentional self-harm, initial encounter Condition: ZACK Pandey MD November 17, 2016 18:19
[2016-11-18 16:58] VITALS: BP 118/64; PULSE 75; RESP 19; TEMP 98.2
--- NOTE | 2016-11-18 17:44 | PSY ---
Date/Time of Note Date/Time of Note DATE: 11/18/16 TIME: 16:58 Psychiatric Subjective Eval Consent Pt consented to telemedicine: Yes Subjective Evaluation Patient location: emergency Chief Complaint: 17 weeks c/o depression with suicidal ideation Reason for consult: Suicide risk assessment and reevaluation. History of present illness This is a 21 year old female 17 weeks pregant who presented to the ED following a suicide gesture of taking 10 Tylenols. She said that the father of her fetus and boyfriend had broken up with her several days ago. She said that she had been feeling depressed over the past several days and impulsively took tylenol. She said that she had a suicide attempt 3 years ago when she was 18. She did not recall what triggered the suicidal gesture. She denies taking any psychotropic medications but has seen a therapist in the past. She has expressed interest in seeing a therapist at this time. She was seen and assessed by Dr. Guerra [address] Guerra recommended inpatient treatment. There has been no bed available, so a another psychiatric consult or assessment was requested. Since the Dr. Guerra assessment the patient has been calm, cooperative, and remorseful regarding her behavior. She denies suicidal or homicidal ideation, intent or plan at this time. She denies hallucinations or delusions. She denies any problems with substance use. Past psychiatric history She has never seen a psychiatrist. She did have a suicide attempt 3 years ago. She has seen a counselor. She is not seeing one now, and would like to. Hospitalization: Suicidal Attempt(s) (She had a suicide attempt 3 years ago. ) Family History Denied any family history of problems with substance use and mental illness. Medical history Problems Medical Problems: (1) Contact dermatitis Status: Acute (2) Depression Status: Chronic (3) Foot contusion Status: Acute (4) Intentional drug overdose Status: Acute (5) Intrauterine Status: Acute (6) Overdose Status: Acute (7) Pelvic pain during Status: Acute (8) Status: Acute (9) Pyelonephritis during Status: Acute (10) Soft tissue abscess Status: Acute (11) Subchorionic hemorrhage Status: Acute (12) Suicidal ideation Status: Acute (13) Suicide attempt Status: Acute (14) Threatened Status: Acute Allergies: Coded Allergies: No Known Drug Allergies (Unverified Allergy, Mild, 11/17/16) Substance Abuse Substance use: No known substance abuse Social History Marital status: single Level of education: 13 years DPA/Conservatorship: No Occupation/Skilled Nursing: unemployed Psychiatric Objective Eval Review of Systems: Review of Systems: Not Applicable Constitutional: Normal Eyes: Normal ENT: Normal Neck: Normal Respiratory: Normal Chest/Breast: Normal Cardiovascular: Normal GI: Normal Genitourinary: Normal Skin: Normal Lymphatic: Normal Musculoskeletal: Normal Neurological: Normal Physical Examination: Sleep: Adequate Appetite: Adequate Energy: Adequate Interest: Adequate Mental Status Examination: Appearance: Groomed Eye Contact: Good Psychomotor Activity: Normal Behavior: Friendly, Cooperative Speech: Clear AFFECT: Appropriate Mood: Appropriate/Full Though Process: Linear Thought Content: Normal Suicidal: No Homicidal: No Orientation: x4 Cognition: Alert Insight: Intact Judgement: Intact Attention Span: Intact Laboratory Results Laboratory Tests Test 11/17/16 14:15 11/17/16 14:46 11/17/16 16:20 White Blood Count 7.710^3/ul Red Blood Count 3.9310^6/ul Hemoglobin 12.1g/dl Hematocrit 35.7% Mean Corpuscular Volume 90.8fl Mean Corpuscular Hemoglobin 30.8pg Mean Corpuscular Hemoglobin Concent 33.9g/dl Red Cell Distribution Width 13.3% Platelet Count 16509^3/UL Mean Platelet Volume 10.8fl Neutrophils % 61.6% Lymphocytes % 25.7% Monocytes % 11.1% Eosinophils % 0.9% Basophils % 0.4% Nucleated Red Blood Cells % 0.0/100WBC Neutrophils # 4.710^3/ul Lymphocytes # 2.010^3/ul Monocytes # 0.910^3/ul Eosinophils # 0.110^3/ul Basophils # 0.010^3/ul Nucleated Red Blood Cells # 0.010^3/ul Prothrombin Time 12.0Sec Prothrombin Time Ratio 0.9 INR International Normalized Ratio 0.89 Activated Partial Thromboplast Time 27.5Sec Sodium Level 141mmol/L Potassium Level 4.2mmol/L Chloride Level 113mmol/L Carbon Dioxide Level 26mmol/L Anion Gap 6 Blood Urea Nitrogen 5mg/dl Creatinine 0.52mg/dl Glucose Level 80mg/dl Calcium Level 9.2mg/dl Total Bilirubin 0.1mg/dl Direct Bilirubin 0.00mg/dl Indirect Bilirubin 0.1mg/dl Aspartate Amino Transf (AST/SGOT) 21IU/L Alanine Aminotransferase (ALT/SGPT) 31IU/L Alkaline Phosphatase 58IU/L Total Protein 7.2g/dl Albumin 3.8g/dl Globulin 3.40g/dl Albumin/Globulin Ratio 1.11 Salicylates Level < 1.0mg/dl Acetaminophen Level < 10.0ug/ml < 10.0ug/ml Ethyl Alcohol Level < 10.0mg/dl Urine Color YELLOW Urine Clarity SLIGHTLY CLOUDY Urine pH 6.0 Urine Specific [place] 1.025 Urine Ketones TRACE Urine Nitrite NEGATIVE Urine Bilirubin NEGATIVE Urine Urobilinogen 1.0 E.U./dL Urine Leukocyte Esterase NEGATIVE Urine Hemoglobin NEGATIVE Urine Glucose NEGATIVE% Urine Total Protein NEGATIVE Urine Opiates Screen NEGATIVE Urine Barbiturates NEGATIVE Urine Amphetamines Screen NEGATIVE Urine Benzodiazepines Screen NEGATIVE Urine Cocaine Screen NEGATIVE Urine Cannabinoids NEGATIVE Assessment and Plan Assessment/Diagnosis [place] I: Adjustment disorder with depressed mood. [place] II: deferred [place] III: 17 week gestation [place] IV: problems with employment, housing and finances. [place] V: 50 Recommendation/Plan Medication Management No medications at this time. 5150 Recommendation: Release Hold (The patient does not meet 5150 criteria at this time. She could be discharged to herself and mother. ) WILY GARCES MD November 18, 2016 17:08
== END 2016-11-18 16:59 | disposition home or self-care (01) ==
LOC: E/R 13:41
DX: O9A.212 Injury, poisoning and certain other consequences of external causes complicating pregnancy, second trimester (principal); T14.91 Suicide attempt; T39.1X2A Poisoning by 4-Aminophenol derivatives, intentional self-harm, initial encounter; Z3A.18 18 weeks gestation of pregnancy
CPT/HCPCS: 36415; 76805; 80053; 80306; 80307; 81003; 85025; 85610; 85730; Z7502

== ENCOUNTER 2018-03-12 07:35 | Inpatient (IN) | END 2018-03-14 15:22 | disposition home or self-care (01) | DRG 775 ==